=== PATIENT | female | born 1985 ===

== ENCOUNTER 2020-04-13 19:28 | Emergency (ER) | payer OTHER ==
[~2020-04-13] VITALS: Ht 157.5 cm; Wt 86.2 kg
--- NOTE | 2020-04-13 23:16 | Diagnostic Imaging Report ---
X-ray left ankle 3 views HISTORY: Pain. Sprain, bruising COMPARISON: None available. FINDINGS: Bones: No acute displaced fracture. Osseous alignment is within normal limits. Joints: The joint spaces are well-maintained. Soft tissues: Mild soft tissue edema about the ankle. IMPRESSION: No acute radiographic osseous abnormality. Mild soft tissue edema about the ankle. Signed by: Sancho Ryan DO on 04/13/2020 11:13 PM
[2020-04-13] MEDS ORDERED: ULTRAM50 MG PO (23:47)
--- NOTE | 2020-04-13 23:56 | Emergency Department Note ---
History of Present Illnes History of Present Illness Chief Complaint: Extremity Trauma/Pain History of Present Illness This is a 35 year old female arrives to the ED with left ankle pain and swelling after stepping off a curb on Tuesday. Patient states she has not been icing it, elevating it until recently and pain is worse on ambulation. . 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 Any updates have been documented here. Past Medical History Recent Fever: No Clinical Suspicion of Infectio: No New/Unexplained Change in Ment: No Social History Smoking Cessation: Never Smoker Counseling Performed: No Alcohol Use: Social Review of Systems Review of Systems Constitutional: Reports no symptoms EENTM: Reports no symptoms Cardiovascular: Reports no symptoms Respiratory: Reports no symptoms Gastrointestinal: Reports no symptoms Genitourinary: Reports no symptoms Musculoskeletal: Reports as per HPI, Reports joint swelling Integumentary: Reports no symptoms Neurological: Reports no symptoms Psychological: Reports no symptoms Endocrine: Reports no symptoms Hematological/Lymphatic: Reports no symptoms Physical Exam Related Data Allergies: Coded Allergies: No Known Allergies (Unverified , 04/13/20) Triage Vital Signs Vital Signs Date Time Temp Pulse Resp B/P (MAP) Pulse Ox O2 Delivery O2 Flow Rate FiO2 04/13/20 21:02 99.3 82 17 153/89 99 Room Air Vital signs reviewed: Yes Physical Exam CONSTITUTIONAL Constitutional: Present well-developed, Present well-nourished HENT HENT: Present normocephalic, Present atraumatic, Present oropharynx clear/moist, Present nose normal HENT L/R: Present left ext ear normal, Present right ext ear normal EYES Eyes: Reports PERRL, Reports conjunctivae normal NECK Neck: Present ROM normal PULMONARY Pulmonary: Present effort normal, Present breath sounds normal CARDIOVASCULAR Cardiovascular: Present regular rhythm, Present heart sounds normal, Present capillary refill normal, Present normal rate GASTROINTESTINAL Abdominal: Present soft, Present nontender, Present bowel sounds normal GENITOURINARY Genitourinary: Present exam deferred SKIN Skin: Present warm, Present dry MUSCULOSKELETAL Musculoskeletal: Present edema, Present tenderness, Present swelling (ecchymoses noted over the lateral aspect and medial aspect of left foot) NEUROLOGICAL Neurological: Present alert, Present oriented x 3, Present no gross motor or sensory deficits PSYCHOLOGICAL Psychological: Present mood/affect normal, Present judgement normal Results Imaging Imaging results reviewed: Yes Impressions IMPRESSION: No acute radiographic osseous abnormality. Mild soft tissue edema about the ankle. Assessment & Plan Medical Decision Making MDM 35-year-old female arrived to the ED after an inversion ankle injury. Patient normal DP/PT pulses, tender over talofibular joint, placed in an ortho boot and outpatient orthopedic follow-up given. X-ray reviewed, no acute infection noted. Assessment & Plan Final Impression: (1) Ankle sprain Depart Disposition: HOME, SELF-CARE Last Vital Signs Date Time Temp Pulse Resp B/P (MAP) Pulse Ox O2 Delivery O2 Flow Rate FiO2 04/13/20 21:02 99.3 82 17 153/89 99 Room Air Home Meds Active Scripts Tramadol Hcl (ULTRAM) 50 Mg Tablet, 50 MG PO Q6HR PRN for Mild Pain (1-3) or Fever>100.8, #12 TAB Prov:ARNOLDO DICKENS DO 04/13/20 ARNOLDO DICKENS DO Apr 13, 2020 23:56
[2020-04-14 00:01] VITALS: BP 124/74
== END 2020-04-14 00:01 | disposition home or self-care (01) ==
LOC: ER 20:30
DX: S93.402A Sprain of unspecified ligament of left ankle, initial encounter (principal); X50.1XXA Overexertion from prolonged static or awkward postures, initial encounter; Y92.480 Sidewalk as the place of occurrence of the external cause
CPT/HCPCS: 99283